=== PATIENT | female | born 1975 | race African-American/Black ===

== ENCOUNTER → 2017-06-01 | Outpatient (CLI) | payer BC ==
[~2017-06-01] MED LIST: ALDACTONE25 MG PO; ASCORBIC ACID500 M2 PO; FERRO-TIME325 MG PO; HYDROCHLOROTHIA25 MG PO; LORTAB 7.5-5001 TAB PO; NORVASC10 MG; NORVASC10 MG PO; ZYRTEC-D TABLE1 EACH PO
--- NOTE | ~2017-06-01 | US77 ---
[facility] A Service of [facility] & [facility] RADIOLOGY TEXT RESULTS PATIENT: ARLEEN GREENWOOD LOCATION: [facility] : 75 UNIT #: [id number] AGE: [address]: Sal Escalera MD SEX: F ORDER DR: [id number] [facility] [address] [place], [place] [address] [id number] O MR#: [id number] Acc #: [id number] NAME: ARLEEN GREENWOOD : 1975 SEX: F STUDY DATE/TIME: 06/01/2017 13:40 UNIT: [facility] ROOM: STUDY DESCRIPTION: US Kidney Bilateral Complete Attending Physician: Sal Escalera M.D. Referring Physician: Sal Escalera M.D. Ordering Physician: Sal Escalera M.D. [facility] RE[facility] This report is preliminary unless electronic signature is present EXAM Renal ultrasound. INDICATIONS Recurrent urinary tract infections. Patient reports 3 to 4 urinary tract infections in the last 6 months. TECHNIQUE Adkins-scale and color Doppler sonographic images were obtained through the kidneys and bladder. FINDINGS Urinary bladder appears unremarkable. No hydronephrosis is identified on either side. The kidneys are grossly unremarkable with no solid or cystic renal masses identified. IMPRESSION Negative. Dictated by... Sarah Villa M.D. THIS IS AN ELECTRONICALLY VERIFIED REPORT Sarah Villa M.D. at 06/13/2017 8:10 AM DU/melo TD: 06/02/2017 15:36 JOB #: [id number] MEDICAL IMAGING REPORT Page 1 of 1 COPY
== END | disposition home or self-care (01) ==
LOC: CGUS 13:11
DX: N39.0 Urinary tract infection, site not specified (principal)
CPT/HCPCS: 76770